=== PATIENT | male | born 1980 ===

== ENCOUNTER 2017-11-06 11:33 | Emergency (ER) | payer OTHER ==
[2017-11-06 11:56] VITALS: O2SAT 98
--- NOTE | 2017-11-06 12:53 | C.PDOC ---
History Of Present Illness 37 year male presents to the ED for evaluation of abdominal pain which has been worsening for several months. Patient states he has been experiencing pain since 2016, but symptoms are now more persistent and intense. Patient states symptoms are around epigastric and right upper quadrant area and are worse after eating. Denies nausea, vomiting, diarrhea, fever. Patient denies prior abdominal surgeries. Patient is also complaining of persist swelling to left ankle since 2016. Patient is s/p ORIF in 2016 due to fall. Patient denies ortho follow up. Patient denies new trauma. 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 VIA TRANS CO ABD PAIN WORSENING X SEV MONTHS. PS W PAIN SINCE 2016 BUT NOW MORE PERSIST AND INTENSE. EPIG/RUQ AREA WORSE AFTER EATING. NO NVD, FEVER. NO PRIOR ABD SURG. ALSO CO PERSIST SWELLING L ANKLE SINCE 2016. S/P ORIF 2016 DUE TO FALL. NO ORTHO FU. NO NEW TRAUMA. 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 History/Exam Limitations: no limitations Onset/Duration Of Symptoms: Other (several months ) Current Symptoms Are (Timing): Still Present Additional History Per: Patient Past Medical History Reviewed: Historical Data, Nursing Documentation, Vital Signs Vital Signs: Last Vital Signs Temp 97.4 F L 11/06/17 15:04 Pulse 66 11/06/17 15:04 Resp 17 11/06/17 15:04 BP 157/82 H 11/06/17 15:04 Pulse Ox 98 11/06/17 23:16 - Medical History PMH: No Chronic Diseases Surgical History: No Surg Hx Family History: States: Unknown Family Hx - Social History Hx Alcohol Use: No Hx Substance Use: No - Immunization History Hx Tetanus Toxoid Vaccination: No Hx Influenza Vaccination: No Hx Pneumococcal Vaccination: No Review Of Systems Constitutional: Negative for: Fever, Chills Gastrointestinal: Positive for: Abdominal Pain. Negative for: Nausea, Vomiting , Diarrhea Musculoskeletal: Positive for: Other (persistent swelling to left ankle ) Physical Exam - Physical Exam Appears: Non-toxic, No Acute Distress Skin: Normal Color, Warm, Dry Head: Atraumatic, Normacephalic Eye(s): bilateral: Normal Inspection Oral Mucosa: Moist Neck: Supple Chest: Symmetrical, No Deformity, No Tenderness Cardiovascular: Rhythm Regular, No Murmur Respiratory: Normal Breath Sounds, No Rales, No Rhonchi, No Wheezing Gastrointestinal/Abdominal: Soft, Tenderness (epigastric and right upper quadrant ), No Guarding, No Rebound Extremity: Normal ROM, No Tenderness (left ankle ), Capillary Refill (less than 2 seconds ), No Deformity, Swelling (left ankle (chronic)) Neurological/Psych: Oriented x3, Normal Speech, Normal Cognition Gait: Steady ED Course And Treatment - Laboratory Results Result Diagrams: 11/06/17 13:20 11/06/17 13:20 O2 Sat by Pulse Oximetry: 98 (on RA ) Pulse Ox Interpretation: Normal Progress Note: Bloodwork and US Abdomen ordered and reviewed. Morphine IVP administered. Reevaluation Time: 14:42 Reassessment Condition: Improved (CLINIC FU GIVEN) Disposition Counseled Patient/Family Regarding: Studies Performed, Diagnosis, Need For Followup - Disposition Referrals: [facility] [Outside] [facility] [Outside] Disposition: HOME/ ROUTINE Disposition Time: 14:42 Condition: IMPROVED Prescriptions: Famotidine [Pepcid AC] 10 mg PO QN #30 tablet Omeprazole Magnesium [Prilosec Otc] 20 mg PO QPM #30 tab Instructions: Chronic Pain (DC), Colic (DC) Forms: [facility] (Irish) Print Language: VIETNAMESE - Clinical Impression Clinical Impression: Chronic ankle pain, Chronic abdominal pain - Scribe Statement The provider has reviewed the documentation as recorded by the Scribe (Alicia Worrell) Provider Attestation: All medical record entries made by the Scribe were at my direction and personally dictated by me. I have reviewed the chart and agree that the record accurately reflects my personal performance of the history, physical exam, medical decision making, and the department course for this patient. I have also personally directed, reviewed, and agree with the discharge instructions and disposition.
[2017-11-06] MEDS ORDERED: Morphine 4 MG/ML VIAL ONE (13:09)
[2017-11-06 13:28] LABS: BASO % 0.3 % (0.0-2.0); EOS # 0.2 K/uL (0.0-0.7); EOS % 2.8 % (0.0-4.0); HEMOGLOBIN 15.5 g/dL (12.0-18.0); LYMPH # 2.9 K/uL (1.0-4.3); LYMPH % 35.6 % (20.0-40.0); MEAN CELL VOLUME 78.7 fL (80.0-94.0); MEAN CORPUSCULAR HEMOGLOBIN 26.4 pg (27.0-31.0); MEAN CORPUSCULAR HGB CONC 33.6 g/dL (33.0-37.0); MEAN PLATELET VOLUME 7.9 fL (7.2-11.7); MONO # 0.8 K/uL (0.0-0.8); MONO % 9.9 % (0.0-10.0); NEUT # 4.2 K/uL (1.8-7.0); NEUT % 51.4 % (50.0-75.0); RBC 5.88 Mil/uL (4.40-5.90); RED CELL DISTRIBUTION WIDTH 14.2 % (11.5-14.5); WHITE BLOOD COUNT 8.1 K/uL (4.8-10.8)
[2017-11-06 13:47] LABS: ALB/GLOB RATIO 1.1 (1.0-2.1); ALBUMIN 4.6 g/dL (3.5-5.0); ALT/SGPT 63 U/L (21-72); AST/SGOT 49 U/L (17-59); BLOOD UREA NITROGEN 9 mg/dL (9-20); CALCIUM 9.4 mg/dl (8.6-10.4); GFR AFRICAN-AMERICAN > 60; GFR NON-AFRICAN AMERICAN > 60; LIPASE 161 U/L (23-300)
--- NOTE | 2017-11-06 14:17 | US ---
HISTORY: abd pain COMPARISON: None. TECHNIQUE: Sonographic evaluation of the right upper quadrant of the abdomen. FINDINGS: LIVER: Measures 14.7 cm in length. Diffusely increased echogenicity of the liver parenchyma. Consistent with fatty infiltration. Smooth contour. No mass. No biliary ductal dilatation. GALLBLADDER: Unremarkable. No gallstones. COMMON BILE DUCT: Measures 6 mm. No stones. No dilatation. PANCREAS: Unremarkable as visualized. No mass. No ductal dilatation. RIGHT KIDNEY: Measures 9.8 cm in length. Normal echogenicity. No calculus, mass, or hydronephrosis. AORTA: No aneurysmal dilatation. IVC: Unremarkable. OTHER FINDINGS: None . IMPRESSION: Fatty infiltration of the liver. No evidence of cholelithiasis or cholecystitis. Otherwise unremarkable.
[2017-11-06 15:05] VITALS: BP 157/82; PULSE 66; RESP 17; TEMP 97.4
== END 2017-11-06 15:05 | disposition home or self-care (01) ==
LOC: C.ER 11:33
DX: R10.9 Unspecified abdominal pain (principal); M25.572 Pain in left ankle and joints of left foot; G89.29 Other chronic pain
CPT/HCPCS: 76705; 80053; 83690; 85025; 96374; 99285; J2270

== ENCOUNTER 2018-07-16 12:41 | Emergency (ER) | payer OTHER ==
[2018-07-16 12:45] VITALS: BMI 28.9
--- NOTE | 2018-07-16 13:21 | C.PDOC ---
History Of Present Illness 38 year old male presents to the ED for an evaluation of syncopal episode onset today. Patient states he was in the bathroom urinating while the symptoms occurred. Also reports of bilateral chest pain that worsens with exertion and no alleviating factor. Sometimes his back hurts with deep breaths. Otherwise, patient denies family history of premature cardiac disease, headache, dizziness or shortness of breath. Time Seen by Provider: 07/16/18 12:55 Chief Complaint (Nursing): Syncope History Per: Patient History/Exam Limitations: no limitations Onset/Duration Of Symptoms: Hrs Fall Associated With With Symptoms: No Past Medical History Reviewed: Historical Data, Nursing Documentation, Vital Signs Vital Signs: Last Vital Signs Temp 98.2 F 07/16/18 12:44 Pulse 64 07/16/18 12:44 Resp 18 07/16/18 12:44 BP 132/93 H 07/16/18 12:44 Pulse Ox 99 07/16/18 12:44 - Medical History PMH: No Chronic Diseases Family History: States: Unknown Family Hx - Social History Hx Alcohol Use: No Hx Substance Use: No - Immunization History Hx Tetanus Toxoid Vaccination: No Hx Influenza Vaccination: No Hx Pneumococcal Vaccination: No Review Of Systems Cardiovascular: Positive for: Chest Pain Respiratory: Negative for: Shortness of Breath Musculoskeletal: Positive for: Back Pain Neurological: Positive for: Other (syncope). Negative for: Headache, Dizziness Physical Exam - Physical Exam Appears: Well, No Acute Distress Skin: Normal Color, Warm, Dry Head: Atraumatic, Normacephalic Eye(s): bilateral: Normal Inspection, PERRL, EOMI Throat: Normal Neck: Normal Chest: Symmetrical Cardiovascular: Rhythm Regular Respiratory: Normal Breath Sounds Gastrointestinal/Abdominal: Normal Exam, Soft, No Tenderness Back: Normal Inspection Extremity: Normal ROM, No Tenderness, No Deformity Neurological/Psych: Oriented x3, Normal Speech Gait: Steady ED Course And Treatment - Laboratory Results Result Diagrams: 07/16/18 13:35 07/16/18 13:35 ECG: Interpreted By Me ECG Rhythm: Sinus Rhythm ECG Interpretation: Normal Interpretation Of ECG: Normal axis, normal intervals, no ST/T changes, no ectopy Rate From EC O2 Sat by Pulse Oximetry: 99 (RA) Pulse Ox Interpretation: Normal - Other Rad CXR X-Ray: Read By Radiologist Interpretation: Accession No. : [id number]. Patient Name / ID : DENTON SILVERIO / [id number]. Exam Date : 07/16/2018 13:29:18 ( Approved ). Study Comment : Sex / Age : M / 38Y. Creator : Evelyne Duvall MD. Dictator : Evelyne Duvall MD. 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 Approver2 : Report Date : 07/16/2018 14:27:36. My Comment : . HISTORY: chest pain. COMPARISON: Chest x-ray performed 03/25/18. TECHNIQUE: Chest, one view. FINDINGS: Examination limited by habitus and hypoinflation. LUNGS: No focal consolidation. Please note that chest x-ray has limited sensitivity for the detection of pulmonary masses. PLEURA: No significant pleural effusion identified. No definite pneumothorax . CARDIOVASCULAR: Heart size appears borderline enlarged, likely exaggerated by hypoinflation. No significant atherosclerotic calcification present. OSSEOUS STRUCTURES: No acute osseous abnormality identified. VISUALIZED UPPER ABDOMEN: Unremarkable. OTHER FINDINGS: None. IMPRESSION: Hypoinflation. No focal consolidation identified. Heart size appears borderline enlarged, likely exaggerated by hypoinflation. Medical Decision Making Medical Decision Making: Time: 1307 Impression: Syncope Initial Plan: --EKG --Basic Metabolic Panel --Troponin --CBC w/ Differential --Chest Portable [RAD] --Aspirin 324mg PO Lab, CXR, and EKG reviewed and were all unremarkable. Patient given toradol IVP for pain and on re-eval reports improvement in pain. Advised outpatient followup with PMD. Return to the ED for any new or worsening symptoms. Disposition - Disposition Disposition: HOME/ ROUTINE Disposition Time: 15:40 Condition: GOOD Additional Instructions: NUSRAT CHAWLA, thank you for letting us take care of you today. Your provider was Floresita Keating MD and you were treated for BODY PAIN. The emergency medical care you received today was directed at your acute symptoms. If you were prescribed any medication, please fill it and take as directed. It may take several days for your symptoms to resolve. Return to the Emergency Department if your symptoms worsen, do not improve, or if you have any other problems. Please contact your doctor or call one of the physicians/clinics you have been referred to that are listed on the Patient Visit Information form that is included in your discharge packet. Bring any paperwork you were given at discharge with you along with any medications you are taking to your follow up visit. Our treatment cannot replace ongoing medical care by a primary care provider outside of the emergency department. Thank you for allowing the [facility] team to be part of your care today. If you had an X-Ray or CT scan: A Radiologist will review the ED reading if any change in treatment is needed we will contact you. If you had a blood, urine, or wound culture: It will take several days for the results, if any change in treatment is needed we will contact you. If you had an STI test: It will take 48 hours for the results. Please call after 1 week if you have not heard back. Instructions: Chest Pain (DC), Syncope (Fainting) (DC) Forms: [facility] [employer] (Spanish) Print Language: MONGOLIAN - Clinical Impression Clinical Impression: Syncope, Chest pain - Scribe Statement The provider has reviewed the documentation as recorded by the Scribe (Blue Garcia) All medical record entries made by the Scribe were at my direction and personally dictated by me. I have reviewed the chart and agree that the record accurately reflects my personal performance of the history, physical exam, medical decision making, and the department course for this patient. I have also personally directed, reviewed, and agree with the discharge instructions and disposition.
[2018-07-16 13:41] LABS: BASO % 0.3 % (0.0-2.0); EOS # 0.1 K/uL (0.0-0.7); EOS % 1.5 % (0.0-4.0); HEMOGLOBIN 16.4 g/dL (12.0-18.0); LYMPH # 2.7 K/uL (1.0-4.3); LYMPH % 41.2 % (20.0-40.0); MEAN CELL VOLUME 79.3 fL (80.0-94.0); MEAN CORPUSCULAR HEMOGLOBIN 26.7 pg (27.0-31.0); MEAN CORPUSCULAR HGB CONC 33.7 g/dL (33.0-37.0); MEAN PLATELET VOLUME 7.5 fL (7.2-11.7); MONO # 0.7 K/uL (0.0-0.8); MONO % 10.7 % (0.0-10.0); NEUT % 46.3 % (50.0-75.0); NRBC % 0.2 % (0.0-2.0); RBC 6.13 Mil/uL (4.40-5.90); RED CELL DISTRIBUTION WIDTH 14.6 % (11.5-14.5); WHITE BLOOD COUNT 6.6 K/uL (4.8-10.8)
[2018-07-16 13:58] LABS: BLOOD UREA NITROGEN 13 mg/dL (9-20); CALCIUM 9.6 mg/dl (8.6-10.4); GFR NON-AFRICAN AMERICAN > 60
--- NOTE | 2018-07-16 14:31 | RAD ---
HISTORY: chest pain COMPARISON: Chest x-ray performed 03/25/18 TECHNIQUE: Chest, one view. FINDINGS: Examination limited by habitus and hypoinflation. LUNGS: No focal consolidation. Please note that chest x-ray has limited sensitivity for the detection of pulmonary masses. PLEURA: No significant pleural effusion identified. No definite pneumothorax . CARDIOVASCULAR: Heart size appears borderline enlarged, likely exaggerated by hypoinflation. No significant atherosclerotic calcification present. OSSEOUS STRUCTURES: No acute osseous abnormality identified. VISUALIZED UPPER ABDOMEN: Unremarkable. OTHER FINDINGS: None. IMPRESSION: Hypoinflation. No focal consolidation identified. Heart size appears borderline enlarged, likely exaggerated by hypoinflation.
[2018-07-16 15:31] VITALS: BP 131/94; PULSE 61; RESP 20; TEMP 98.1
[2018-07-16 16:33] VITALS: O2SAT 99
--- NOTE | 2018-07-17 17:36 | CARD ---
APPROVED REPORT Date of service: 07/16/2018 EKG Measurement Heart [id number] <Conclusion> Sinus bradycardia Otherwise normal ECG
== END 2018-07-16 15:42 | disposition home or self-care (01) ==
LOC: C.ER 12:41
DX: R55 Syncope and collapse (principal); R07.9 Chest pain, unspecified
CPT/HCPCS: 71045; 80048; 84484; 85025; 93005; 96374; 99285; J1885

== ENCOUNTER 2018-08-25 12:11 | Outpatient (CLI) | payer OTHER | END 2018-08-25 12:12 | disposition home or self-care (01) | LOC: C.LAB 12:11 | DX: R07.89 Other chest pain (principal); R05 Cough; R06.00 Dyspnea, unspecified; R03.0 Elevated blood-pressure reading, without diagnosis of hypertension; F40.298 Other specified phobia; Z11.3 Encounter for screening for infections with a predominantly sexual mode of transmission; Z13.1 Encounter for screening for diabetes mellitus; Z13.220 Encounter for screening for lipoid disorders ==

== ENCOUNTER 2018-08-26 07:43 | Outpatient (CLI) | payer OTHER | END 2018-08-26 07:44 | disposition home or self-care (01) | LOC: C.NUCMED 07:43 | DX: R07.89 Other chest pain (principal); R05 Cough; R06.00 Dyspnea, unspecified; Z11.3 Encounter for screening for infections with a predominantly sexual mode of transmission ==